=== PATIENT | female | born 1950 | race Caucasian/White ===

== ENCOUNTER 2017-01-27 07:02 | Observation (INO) | payer MEDICARE ==
--- NOTE | ~2017-01-27 | HP ---
History And Physical [place] [id number] [facility] [place]. [address] NAME: KAREN CORTES : 46 STATUS : ADM Agatha PAT#: [id number] AGE: 66 ADM/REG DATE : 01/27/17 MR#: [id number] REPORT SERV DATE: 01/27/17 DICTATED BY: DALILA STRICKLAND DATE: 01/27/17 REPORT STATUS : Draft TRANSCRIBED BY: MODThom DATE: 01/27/17 DATE OF ADMISSION: 01/27/2017 PRIMARY CARE PHYSICIAN: Grieclda Sheehan. CHIEF COMPLAINT: Chest pain and back pain. HISTORY OF PRESENT ILLNESS: A pleasant 66-year-old white female with no known history of CAD, states that since 01/26/2017 in the morning, she has experienced a chest pain that radiated to her back. She states that she "hurt all day. She did attend [employer] service, but came home and laid down for the rest of the day. She describes it as left-sided in nature that radiates to her back and under her left breast. She describes associated nausea. Denies shortness of breath, diaphoresis, dizziness, or belching. She reports similar events over the past month that she did not report or seek evaluation of. She did try taking some Tylenol and low-dose aspirin with no improvement in her symptoms. At its most intense, her chest pain was rated at 10/10 at the time of interview in the CDU. She rates it as 3/10. She describes it as persistent possibly improved with sitting up. The patient denies any personal history of myocardial infarction, stroke, DVT, or pulmonary embolus. The patient recently treated for a sinusitis infection. Denies palpitations. No syncopal episodes. Denies PND or orthopnea. PAST MEDICAL HISTORY: 1. Hypertension. 2. BMI greater than 40. 3. Cholesterol, followed by PCP. 4. Glaucoma. 5. History of pancreatitis. PAST SURGICAL HISTORY: 1. Tonsillectomy. 2. Cholecystectomy. 3. Hysterectomy. 4. Rectocele. 5. . SOCIAL HISTORY: She is with three children. 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 Does not have an exercise routine. Denies tobacco, alcohol, or illicits. FAMILY HISTORY: No embolic events reported in first-degree relatives. REVIEW OF SYSTEMS: A 14-point review of systems performed, significant for HPI including snores per report with no formal sleep study and scheduled venous Doppler studies today. Otherwise complete review of systems obtained and negative. History And Physical [address] [place] [place]. [address] NAME: KAREN CORTES : 46 STATUS : ADM Agatha PAT#: [id number] AGE: 66 ADM/REG DATE : 01/27/17 MR#: [id number] REPORT SERV DATE: 01/27/17 DICTATED BY: DALILA STRICKLAND DATE: 01/27/17 REPORT STATUS : Draft TRANSCRIBED BY: SHAILA DATE: 01/27/17 ALLERGIES: ALLERGY TO AMOXICILLIN, HIVES. HOME MEDICINES: Tylenol p.r.n., Z-Kosta 250 daily completed, vitamin B12, vitamin D daily, Maximum D3 weekly, Benicar/HCTZ 40/25 nightly, Refresh drops daily, and Travatan drops at bedtime. PHYSICAL EXAMINATION: VITAL SIGNS: Bilateral blood pressures on arrival, right 136/65, left 134/62, now 159/71, pulse 53, respirations 17, temperature 97.6, and O2 saturation 95% on room air. Height 5 feet 6 inches, weight 267 pounds, and BMI 43. GENERAL: Cooperative, in no apparent distress. HEENT: Pupils 2 mm, sclera nonicteric. Nares patent. Moist mucous membranes. No xanthelasma. NECK: Trachea midline, no thyromegaly. No JVD. No bruits. LYMPH: No cervical lymphadenopathy. No supraclavicular lymphadenopathy. RESPIRATORY: Unlabored respirations. Breath sounds clear bilaterally to posterior auscultation. No wheezes or rhonchi. CARDIOVASCULAR: Regular rate. No murmur, rub or gallop appreciated. Extremities with 1+ bilateral lower extremity edema right greater than left. Pulses 2+ bilaterally. ABDOMEN: Obese. Soft, nontender, nondistended, normal bowel sounds auscultated throughout. No organomegaly appreciated. SKIN: Warm, dry extremities. No pallor, or cyanosis. PSYCHIATRIC: Appropriate affect. Alert, oriented x3. EXTREMITIES: Erythremic area of right and left pretibial ankle area. LABORATORY DATA: Troponin less than 0.02, second pending. Potassium 3.7, BUN 16, creatinine 0.98, glucose 110, magnesium 1.9. Lipase 249. WBC 7.9, hemoglobin 13.0, hematocrit 38.7, platelet count 208,000. D-dimer 0.32. EKG: Sinus bradycardia. CTA of chest: No evidence for PE. Thoracic aorta, not optimally opacified, but appears normal in caliber. Irregular mixed density nodular opacity in the lateral right upper lobe measuring 10 x [address] scan in three months. Low attenuation lesion in segment two of liver measuring approximately 11 mm. Recommend dynamic enhanced MRI. Multiple small low attenuation lesions in the left hepatic lobe measuring up to 11 mm. These may represent cysts and/or hemangiomas, but are not fully characterized. MRI would be helpful. ASSESSMENT AND PLAN: 1. Substernal chest pain. The patient will be observed in the CPOU to rule out myocardial infarction with serial enzymes and serial EKGs. If second troponin negative, n.p.o. for cardiac cath today. Home if negative study. Await report if anything suggestive of ischemia. Cardiology referral will be initiated. Otherwise, the patient will be asked to follow up her PCP in one to two weeks. 2. BMI greater than 40. Diet and exercise recommended. Avoid salt. 3. Bilateral lower extremity edema. Check bilateral venous Doppler. History And Physical [address] [address] NAME: KAREN CORTES : 46 STATUS : ADM Agatha PAT#: [id number] AGE: 66 ADM/REG DATE : 01/27/17 MR#: [id number] REPORT SERV DATE: 01/27/17 DICTATED BY: DALILA STRICKLAND DATE: 01/27/17 REPORT STATUS : Draft TRANSCRIBED BY: SHAILA DATE: 01/27/17 4. Hypertension. Monitor blood pressure and continue home medications. 5. Snores per report. Recommend outpatient sleep study. 6. Abnormal CTA of chest. Follow up with PCP for further CT and/or MRI studies given multiple nodules and cysts identified on today's CTA of chest. BEATRIZ/SHAILA Dalila Strickland, MSN, [employer] / [id number]
[2017-01-27 06:31] LABS: BASOPHILS 0.4 %; BASOPHILS ABSOLUTE 0.03 10/3/uL (0.0-0.16); EOSINOPHILS ABSOLUTE 0.24 10/3/uL (0.0-0.53); HEMATOCRIT 38.7 % (36.0-48.0); IMMATURE GRANULOCYTES 0.4 %; IMMATURE GRANULOCYTES ABSOLUTE 0.03 10/3/uL (0.0-0.11); LYMPHOCYTES 34.2 %; MEAN CORPUS HGB CONC 33.6 g/dL (32.0-36.0); MEAN CORPUSCULAR HEMOGLOB 29.5 pg (26.0-34.0); MEAN CORPUSCULAR VOLUME 87.8 fL (80-100); MONOCYTES 5.8 %; MONOCYTES ABSOLUTE 0.46 10/3/uL (0.21-1.20); NEUTROPHILS 56.2 %; NEUTROPHILS ABSOLUTE 4.43 10/3/uL (2.02-8.40); PLATELET COUNT 208 10/3/uL (150-400); RBC DISTRIBUTION WIDTH 13.5 % (12.0-16.0); RED CELL COUNT 4.41 10/6/uL (4.0-5.6); WHITE BLOOD CELLS 7.9 10/3/uL (4.5-10.5)
[2017-01-27 06:33] LABS: MANUAL DIFF NO %
[2017-01-27 06:37] LABS: PARTIAL THROMBO TIME 28.1 SEC (22.5-37.2); PROTIME (NOT ORD) 13.2 SEC (12.0-14.5)
[2017-01-27 06:47] LABS: ALBUMIN 3.3 G/DL (3.5-5.0); ALKALINE PHOSPHATASE 89 U/L (45-117); BUN (BLOOD UREA NITROGEN) 16 MG/DL (6-23); CHEST PAIN PROFILE TAT 0 Hrs 20 Mins; CHLORIDE, SERUM 106 MMOL/L (96-112); CO2 (CARBON DIOXIDE) 26 MMOL/L (24-34); CREATININE 0.98 MG/DL (0.55-1.02); DIRECT BILIRUBIN < 0.1 MG/DL (0.0-0.4); GFR AFRICAN AMERICAN 69 ML/MIN (>=60); GFR NON AFRICAN AMERICAN 59 ML/MIN (>=60); GLUCOSE, SERUM 110 MG/DL (60-99); INDIRECT BILIRUBIN(NOT ORDER) 0.4 MG/DL (0.1-0.9); POTASSIUM, SERUM 3.7 MMOL/L (3.5-5.3); SGOT(AST) 14 U/L (5-40); SGPT(ALT) 23 U/L (5-65); SODIUM, SERUM 143 MMOL/L (135-148); TOTAL BILIRUBIN 0.5 MG/DL (0-1.2); TROPONIN I <0.02 NG/ML (<0.05)
[2017-01-27 07:01] LABS: D-DIMER QUANTITATIVE 0.32 ug/mLFEU (< 0.50)
[2017-01-27] MEDS ORDERED: BENICAR HCT1 TA2 PO (08:58)
[2017-01-27] MEDS ORDERED: TRAVATAN Z OPTH OPH (08:59)
[2017-01-27] MEDS ORDERED: Z-PAK PO (09:01)
[2017-01-27] MEDS ORDERED: AMB5 PO (09:01)
[2017-01-27] MEDS ORDERED: REFRES1 OPH (09:02)
[2017-01-27] MEDS ORDERED: ACET500CAP PO (09:02)
[2017-01-27] MEDS ORDERED: VITAMIN B PO (09:03)
[2017-01-27] MEDS ORDERED: MAXIMUM D3 PO (09:03)
[2017-05-06] MEDS ORDERED: VITC500 PO (10:48)
== END 2017-01-27 19:27 | disposition home or self-care (01) ==
LOC: ER 07:02 → CDU1 09:26 → CDU2 09:32
PROVIDERS: Specialist
DX: R07.2 Precordial pain (principal); I10 Essential (primary) hypertension; Z90.49 Acquired absence of other specified parts of digestive tract; Z98.890 Other specified postprocedural states; Z90.710 Acquired absence of both cervix and uterus; Z88.1 Allergy status to other antibiotic agents; Z79.899 Other long term (current) drug therapy; Z68.41 Body mass index [BMI] 40.0-44.9, adult
CPT/HCPCS: 71010; 71275; 78492; 80048; 80076; 83690; 83735; 84484; 85025; 85379; 85610; 85730; 93005; 93017; 93970; 96374; 96375; 96376; 99285; A9270-GY; A9555; G0378; J2405; J2785; Q9967